=== PATIENT | female | born 2005 ===

== ENCOUNTER 2025-04-30 16:10 | Emergency (ER) | payer SELFPAY ==
--- NOTE | ~2025-04-30 | XR_ITS ---
CLINICAL HISTORY: pleuritic chest pain 2 view chest x-ray Comparison: None provided Findings: No consolidation or effusion. Heart size is normal. No acute fracture. IMPRESSION: 1. No acute findings. This document has been electronically signed by: Abdifatah Pizarro MD on 04/30/2025 20:18:01
[2025-04-30 16:20] VITALS: BP 138/79; PULSE 110; RESP 16; TEMP 37; O2SAT 98; BMI 21.8
--- NOTE | 2025-04-30 16:20 | ED.GENADULT ---
HPI - General Adult General Chief complaint: Upper Respiratory Symptoms Stated complaint: sore throat; cp, right side of neck pain Time Seen by Provider: 04/30/25 19:27 History of Present Illness ED Provider: Esha HENSLEY narrative: The patient is a 19-year-old female who comes to the emergency room stating that she has had a sore throat for several weeks or possibly months. She says that she notices it most when she swallows. She feels it somewhat more in the right side of her throat. Has been present for at least several weeks. Today she also felt somewhat short of breath and had some pain with taking a breath and so she came to the emergency room today. She is on no medications. She is on no control. No hormonal therapy. At the moment she has only minimal chest pain. No significant cough. No abdominal pain, nausea, vomiting. No pain or swelling in her legs. Related Data Allergies Allergy/AdvReac Type Severity Reaction Status Date / Time shellfish derived (shellfish) Allergy Anaphylaxis Verified 04/30/25 16:23 Review of Systems Review of Systems: Yes all other systems are reviewed and are negative [facility] Social History Social History Advance Directives: No Advance Directives Information Provided: No Do you have a plan to hurt others: No Plan Physical Exam ED Vital Signs: Vital Signs - 24 hr 04/30/25 16:20 04/30/25 18:51 04/30/25 20:53 Temperature 98.6 F 98.1 F Pulse Rate 110 H 84 69 Respiratory Rate 16 18 Blood Pressure 138/79 116/72 113/62 Pulse Oximetry 98 99 97 Oxygen Delivery Method Room Air Room Air Room Air BMI result Body Mass Index 21.8 Const Other: The patient has the appearance of an ordinarily healthy 19-year-old. She does not appear unwell or in distress. Orientation/consciousness: patient oriented x3 HENMT Other: Face is symmetrical. Mucous membranes moist. The posterior pharynx appears normal. There is normal jaw excursion. No trismus. Eyes Other: Pupils are round equal, conjunctivae are clear, extraocular movements intact Neck Other: I do not appreciate any significant adenopathy. The neck seems benign. Resp Effort & Inspection: normal respiratory effort Auscultation: clear to auscultation bilaterally Cardio Rate: regular rate Rhythm: regular rhythm Heart sounds: S1 normal heart sound present and S2 normal heart sound present Skin Other: The skin is dry and unremarkable Neuro General: patient oriented x3, tone normal, no focal motor deficits and CN's II-XI intact bilaterally Extrem Other: There is no calf swelling or tenderness. No asymmetry. No peripheral edema. Course Course Course Narrative: This is a rapid medical exam performed by Chris Whiteside NP: Additional HPI, ROS, PE not included below will be deferred to primary provider. Patient is a 19-year-old female presenting with complaint of sore throat x a few months, right sided neck pain and swelling since last September. Also complains of chest pain today to the center of her chest. Plan: EKG, labs, viral and strep swabs Medical Decision Making Medical Decision Making MDM Narrative: The patient is an ordinarily healthy 19-year-old who says that she has been having a sore throat for several weeks or possibly months. She does not seem to have an abnormal voice during my interview. She seems to be handling her secretions easily. She does not appear toxic or unwell. She has no trismus. The posterior pharynx appears unremarkable. She has a negative strep test. I do not appreciate any significant adenopathy or difficulty moving the neck. No neck masses. Chest is clear. She reports also having had shortness of breath and pleuritic chest pain today. She was somewhat tachycardic on her 1st set of vital signs. Her EKGs unremarkable. Chest x-ray is unremarkable. D-dimer is undetectable. Strep test is negative. Other labs are unremarkable. She does not have an elevated white count. My overall impression is that the patient does not have an acute process of significance. She was reassured. She was offered a trial of antibiotics but she declines. She will use ibuprofen and acetaminophen. Unfortunately she does not have health insurance. She says that she makes too much money to qualify for [email or web address] and cannot afford what is offered through the [facility]. Lab Data 04/30/25 16:45 04/30/25 16:45 Labs: Lab Results 04/30/25 04/30/25 Range/Units 16:45 20:26 WBC 7.4 (4.8-10.8) X10*3/uL RBC 4.22 (4.20-5.50) X10*6/uL Hgb 13.1 (12.0-16.0) g/dl Hct 38.0 (37.0-47.0) % MCV 90.0 (80.0-98.0) fL MCH 31.0 (27.0-33.0) pg MCHC 34.5 (31.0-35.0) g/dl RDW 12.1 (11.0-16.0) % Plt Count 238 (160-400) X10*3/uL MPV 10.7 (9.4-12.3) fL Immature Gran % (Auto) 0.1 (0.0-0.4) % Neut % (Auto) 54.1 (45-73) % Lymph % (Auto) 37.2 (20-40) % [place] % (Auto) 7.0 (2-11) % Eos % (Auto) 1.1 (0-4) % Baso % (Auto) 0.5 (0-2) % Lymph # (Auto) 2.8 (1.2-4.9) X10*3/uL [place] # (Auto) 0.5 (0.1-1.2) X10*3/uL Eos # (Auto) 0.1 (0.0-0.4) X10*3/uL Baso # (Auto) 0.0 (0.0-0.2) X10*3/uL Abs Immat Gran (auto) 0.01 (0.00-0.03) X10*3/uL Absolute Neuts (auto) 4.0 (2.0-8.3) x10*3/uL Absolute Nucleated RBC 0.000 (0.0-0.012) X10*3/uL Nucleated RBC % (auto) 0.0 (0.0-0.2) /100WBC D-Dimer High Sensitivty < 150 NG/ML Sodium 140 (135-145) mmol/L Potassium 3.6 (3.3-5.1) mmol/L Chloride 107 (96-108) mmol/L Carbon Dioxide 27 (22-29) mmol/L Anion Gap 10 L (12-20) BUN 9 (9-16) mg/dL Creatinine 0.73 (0.5-1.4) mg/dL Estim Creat Clear Calc 132.9 Estimated GFR > 60 Random Glucose 86 (60-115) mg/dL Calcium 9.0 (8.4-10.2) mg/dL Total Bilirubin 0.2 (0.0-1.0) mg/dL AST 17 (5-31) U/L ALT 12 (0-31) U/L Alkaline Phosphatase 52 (39-117) U/L Total Protein 7.1 (6.5-8.0) g/dL Albumin 4.6 (3.5-5.0) g/dL Lipase 12 (8-78) U/L Beta HCG, Quant < 2 mIU/mL Influenza Type A (PCR) NEGATIVE (Negative) Influenza Type B (PCR) NEGATIVE (Negative) RSV RNA Qual (PCR) NEGATIVE (Negative) SARS-CoV-2 RNA (RT-PCR) NEGATIVE (Negative) S. pyogenes GrpA CHARLEY Negative (Negative) Independent Interpretation I performed an independent interpretation of an: EKG Interpretation: EKG at 16:36 shows normal sinus rhythm at 78 beats per minute. It is a normal EKG Discharge Plan Discharge Clinical Impression: Sore throat, Chest pain Patient Disposition: Home, Self-Care Additional Instructions: Your testing today is very reassuring. There was no real sign of a bacterial infection. You have tested negative for strep. Your chest x-ray is clear. There was no sign of a blood clot in your lungs. Overall your testing is extremely reassuring. You may use ibuprofen and acetaminophen as needed for discomfort. Please do your best to work on getting a primary care doctor. Return to the emergency room if you feel significantly worse. Interventions: ED Discharge Assessment Last Done: 04/30/25 21:20 Print Language: Mongolian
--- NOTE | 2025-04-30 16:27 | ECG_ITS ---
Test Reason : CHEST PAIN Blood Pressure : */* mmHG Vent. Rate : 78 BPM Atrial Rate : 78 BPM P-R Int : 150 ms QRS Dur : 84 ms QT Int : 358 ms P-R-T Axes : 46 84 36 degrees QTcB Int : 408 ms Normal sinus rhythm Normal ECG No previous ECGs available Referred By: Montserrat Whiteside Electronically Signed By: GUILLAUME DUNHAM
[2025-04-30 16:49] LABS: MANUAL DIFF FLAG NO
[2025-04-30 16:51] LABS: Hematocrit 38.0 % (37.0-47.0); Hemoglobin 13.1 g/dl (12.0-16.0); Imm Gran Abs Auto 0.01 X10*3/uL (0.00-0.03); Imm Gran Pct Auto 0.1 % (0.0-0.4); Lymphocytes Absolute Auto 2.8 X10*3/uL (1.2-4.9); Mean Corpuscular HGB Conc 34.5 g/dl (31.0-35.0); Mean Corpuscular Hemoglobin 31.0 pg (27.0-33.0); Mean Corpuscular Volume 90.0 fL (80.0-98.0); NRBC Abs Auto 0.000 X10*3/uL (0.0-0.012); NRBC Pct Auto 0.0 /100WBC (0.0-0.2); Platelet Count 238 X10*3/uL (160-400); Red Blood Count 4.22 X10*6/uL (4.20-5.50); White Blood Count 7.4 X10*3/uL (4.8-10.8)
[2025-04-30 16:57] LABS: IDNOW Serial# 58CA691E; Strep A Nucleic Acid Negative (Negative)
[2025-04-30 17:04] LABS: Alanine Aminotransferase 12 U/L (0-31); Albumin Level 4.6 g/dL (3.5-5.0); Alkaline Phosphatase 52 U/L (39-117); Anion Gap 10 (12-20); Aspartate Amino Transferase 17 U/L (5-31); Blood Urea Nitrogen 9 mg/dL (9-16); Calcium 9.0 mg/dL (8.4-10.2); Carbon Dioxide 27 mmol/L (22-29); Chloride 107 mmol/L (96-108); Creatinine Clr Calc Pharmacy 132.9; Estimated Glomerular Filt Rate > 60; Lipase 12 U/L (8-78); Potassium 3.6 mmol/L (3.3-5.1); Sodium 140 mmol/L (135-145); Total Protein 7.1 g/dL (6.5-8.0)
[2025-04-30 17:27] LABS: Resp Syncy Virus RNA Qual PCR NEGATIVE (Negative); SARS COV2 PCR INHOUSE NEGATIVE (Negative)
[2025-04-30 18:51] VITALS: BP 116/72; PULSE 84; RESP 18; O2SAT 99
[2025-04-30 20:41] LABS: D Dimer High Sensitivity < 150 NG/ML
[2025-04-30 20:53] VITALS: BP 113/62; PULSE 69; TEMP 36.7; O2SAT 97
[2025-04-30 21:20] VITALS: BP 113/62; PULSE 69; RESP 17; TEMP 36.7; O2SAT 97
== END 2025-04-30 21:23 | disposition home or self-care (01) ==
PROVIDERS: Registered Nurse Emergency; Emergency Provider Emergency Medicine
DX: J02.9 Acute pharyngitis, unspecified (principal); R07.89 Other chest pain; M54.2 Cervicalgia; R10.2 Pelvic and perineal pain; Z03.818 Encounter for observation for suspected exposure to other biological agents ruled out; Z79.899 Other long term (current) drug therapy
CPT/HCPCS: 36415; 71046; 80053; 83690; 84702; 85025; 85379; 87637; 87651; 93005; 99283; 99284

== ENCOUNTER → 2025-04-30 16:27 | Outpatient (BNV) | payer SELFPAY | PROVIDERS: Emergency Provider Emergency Medicine; Visit Provider Internal Medicine | DX: R07.9 Chest pain, unspecified (principal) | CPT/HCPCS: 93010 ==

== ENCOUNTER → 2025-04-30 19:55 | Outpatient (BNV) | payer SELFPAY | PROVIDERS: Emergency Provider Emergency Medicine; Visit Provider Specialist | DX: R07.81 Pleurodynia (principal) | CPT/HCPCS: 71046 ==